=== PATIENT | female | born 1995 | race Caucasian/White ===

== ENCOUNTER 2016-12-11 11:55 | Emergency (ER) | END 2016-12-11 14:14 | disposition home or self-care (01) | DX: R10.13 Epigastric pain (principal); M54.5 Low back pain; Z33.1 Pregnant state, incidental; Z87.891 Personal history of nicotine dependence ==

== ENCOUNTER 2017-04-18 10:15 | Emergency (ER) | payer MEDICAID ==
[~2017-04-18] VITALS: Ht 157.5 cm; Wt 61.4 kg
[~2017-04-18 10:15] MED LIST: ACET500C5 PO; FAMO-96 PO; PRENAT PO
[2017-04-18 10:22] VITALS: Ht 157.5 cm; Wt 61.4 kg
--- NOTE | 2017-04-18 11:46 | ERD ---
ER Documentation Chief Complaint Chief Complaint [facility] 26 wks preg, no abd complaints HPI Otherwise healthy 21-year-old female who is 26 weeks presents requesting preoperative lab work for that she is going to get done in [place]. No complaints or symptoms at this time. ROS All systems reviewed and are negative except as per history of present illness. Medications Home Meds Active Scripts Multivit/Min/Fol Ac/Iron/Pren* ( S*) 1 Tab Tab, 1 TAB PO DAILY, #30 TAB Prov:GAVINO SHEFFIELD PA-C 12/11/16 Famotidine* (Pepcid*) 20 Mg Tablet, 20 MG PO BID for 30 Days, TAB Prov:GAVINO SHEFFIELD PA-C 12/11/16 Acetaminophen* (Tylophen*) 500 Mg Capsule, 1 CAP PO Q6H Y for PAIN AND OR ELEVATED TEMP, #20 CAP Prov:GAVINO SHEFFIELD PA-C 12/11/16 Allergies Allergies: Coded Allergies: No Known Allergy (Unverified , 04/18/17) PMhx/Soc Hx Alcohol Use: Yes (SOCIALLY) Hx Substance Use: No Hx Tobacco Use: Yes (SOCIALLY) Physical Exam Vitals Vital Signs Date Time Temp Pulse Resp B/P Pulse Ox O2 Delivery O2 Flow Rate FiO2 04/18/17 10:22 98.6 106 18 126/74 98 Physical Exam Const: Well-appearing 21-year-old female in NAD Head: Atraumatic Eyes: Normal Conjunctiva ENT: Normal External Ears, Nose and Mouth. Neck: Full range of motion..~ No meningismus. Resp: Clear to auscultation bilaterally Cardio: Regular rate and rhythm, no murmurs. Cap refill less than 2 seconds. Radial pulses 2+ bilaterally. Ext: No cyanosis, or edema Neur: Awake and alert Psych: Normal Mood and Affect Procedures/MDM Otherwise healthy 21-year-old female presents for preoperative labs. Patient is 26 weeks and is having an induced . The surgeon is in [place]. I respond to the patient that we do not do preoperative labs but I have given her a list of clinics she can go to. No suspicion for any acute pathology. I have spoke with the patient regarding their condition and future management. They have verbally responded that they understand their status and treatment plan. The patients vitals are stable, and their current condition is appropriate for discharge. The patient will be given discharge instructions with return precautions. Departure Diagnosis: Primary Impression: Encounter for laboratory test Condition: Stable Patient Instructions: : Common Questions Additional Instructions: Go to PCP for preop lab work. Return the the emergency department immediately if symptoms worsen or change. KIRSTEN ADDISON PA-C Apr 18, 2017 11:46
== END 2017-04-18 13:35 | disposition left against medical advice (07) ==
LOC: FTE 10:15
DX: Z36.9 Encounter for antenatal screening, unspecified (principal)
CPT/HCPCS: 99282

== ENCOUNTER 2017-06-14 02:31 | Inpatient (IN) | END 2017-06-17 11:10 | disposition home or self-care (01) | DRG 766 ==

== ENCOUNTER 2017-07-20 09:39 | Emergency (ER) | END 2017-07-20 13:25 | disposition home or self-care (01) ==

== ENCOUNTER 2018-05-28 11:36 | Emergency (ER) | payer OTHER ==
[~2018-05-28] VITALS: Wt 54.4 kg
[~2018-05-28 11:36] MED LIST changes: -ACET500C5 PO; +CIPR500T4 PO; -FAMO-96 PO; +MICO100S4 VG; +NAPR-985 PO; -PRENAT PO
[2018-05-28 11:38] VITALS: BP 143/83; PULSE 59; RESP 16
[2018-05-28] MEDS ORDERED: POLY10DR19 BOTH EYES (13:19)
--- NOTE | 2018-05-28 16:45 | ERD ---
ER Documentation Chief Complaint Chief Complaint RIGHT EYE REDNESS/DISCHARGE X2 DAYS HPI Patient is a 22-year-old female who presents ER for concerns of right eye redness and discharge times 2 days. Patient denies any falls or trauma. Patient states the lower aspect of her right eye is bright red. Patient denies any blurry vision. Patient denies contact lens use. Patient denies possibility of foreign body. Patient denies any headache. Patient denies excessive sneezing, coughing, straining. Patient does report wearing glasses. Patient states she noticed that she has some yellow discharge in the medial aspect of her eye this morning. Patient has no fevers or chills. ROS All systems reviewed and are negative except as per history of present illness. Medications Home Meds Active Scripts Polymyxin B Sulfate-TMP* (Polymyxin B-TMP Eye Drops*) 10 Ml Drops, 1 DROP BOTH EYES QID for 7 Days, EA Prov:GAVINO SHEFFIELD PA-C 05/28/18 Naproxen* (Naprosyn*) 500 Mg Tablet, 500 MG PO BID PRN for PAIN AND/OR INFLAMMATION, #30 TAB Prov:DK BERMUDEZ PA-C 07/20/17 Ciprofloxacin Hcl* (Ciprofloxacin Hcl*) 500 Mg Tablet, 500 MG PO BID for 7 Days, TAB Prov:DK BERMUDEZ PA-C 07/20/17 Miconazole Nitrate (Miconazole 7) 100 Mg Supp.vag, 100 MG VG QHS, #7 SUPP.VAG Prov:DK BERMUDEZ PA-C 07/20/17 Allergies Allergies: Coded Allergies: No Known Allergy (Unverified , 04/18/17) PMhx/Soc History of Surgery: Yes (c section on 06/2017) Hx Alcohol Use: Yes (SOCIALLY) Hx Substance Use: No Hx Tobacco Use: Yes (SOCIALLY) Smoking Status: Current some day smoker FmHx Family History: No diabetes Physical Exam Vitals Vital Signs Date Temp Pulse Resp B/P (MAP) Pulse Ox O2 O2 Flow FiO2 Time Delivery Rate 05/28/18 98.6 59 16 143/83 98 11:38 (103) Physical Exam GENERAL: Well-developed, well-nourished female. Appears in no acute distress. HEAD: Normocephalic, atraumatic. EYES: Pupils are equally reactive bilaterally. EOMs grossly intact. Lower aspect of the patient's right eye is noted to have a subconjunctival hemorrhage. Slight amount of yellow drainage is noted in the medial canthus. No proptosis. No pain with EOMs. ENT: Moist mucous membranes. No uvula deviation. No kissing tonsils. NECK: Supple. No meningismus. Normal range of motion of the neck. LUNG: Clear to auscultation bilaterally. No rhonchi, wheezing, rales or coarse breath sounds. HEART: Regular rate and rhythm. No murmurs, rubs or gallops EXTREMITIES: Equal pulses bilaterally. No peripheral clubbing, cyanosis or edema. No unilateral leg swelling. NEUROLOGIC: Alert and oriented. Moving all four extremities without any diffi culty. Normal speech. Steady gait. SKIN: Normal color. Warm and dry. No rashes or lesions. Procedures/MDM MEDICAL DECISION MAKING: This is a 22-year-old female who presents to the ER for concerns of right eye redness and discharge times 2 days. Vital signs were reviewed. Patient was afebrile. Physical exam findings are consistent for subconjunctival hemorrhage versus conjunctivitis. Low suspicion for allergic conjunctivitis, corneal abrasion, corneal ulcer, retained eye foreign body, glaucoma, periorbital cellulitis, orbital cellulitis, hordeolum, dacrocystitis. Patient was nontoxic, not appearing prior to discharge. PRESCRIPTIONS: Polytrim eyedrops DISCHARGE: At this time, patient is stable for discharge and outpatient management. S upportive measures were discussed with patient including warm/cool compresses. Patient advised not to wear contact lenses or eye makeup. I have instructed the patient to follow-up with his/her primary care physician in 1-2 days. I have discussed with the patient the possibility of needing to see an farm specialist for further workup if symptoms persist. I have instructed the patient to promptly return to the ER for any new or worsening symptoms including increased pain, fever, swelling, redness, warmth, nausea, vomiting, . The patient and/or family expressed understanding of and agreement with this plan. All questions were answered. Home care instructions were provided. Disclaimer: Inadvertent spelling and grammatical errors are likely due to EHR/dictation software use and do not reflect on the overall quality of patient care. Also, please note that the electronic time recorded on this note does not necessarily reflect the actual time of the patient encounter. Departure Diagnosis: Primary Impression: Subconjunctival hemorrhage of right eye Additional Impression: Conjunctivitis Conjunctivitis type: unspecified Laterality: right Qualified Codes: H10.9 - Unspecified conjunctivitis Condition: Stable Patient Instructions: Conjunctivitis Caused by Infection, Subconjunctival Hemorrhage Referrals: JULIO PRUETT MD (PCP) [facility] YOU HAVE RECEIVED A MEDICAL SCREENING EXAM AND THE RESULTS INDICATE THAT YOU DO NOT HAVE A CONDITION THAT REQUIRES URGENT TREATMENT IN THE EMERGENCY DEPARTMENT. FURTHER EVALUATION AND TREATMENT OF YOUR CONDITION CAN WAIT UNTIL YOU ARE SEEN IN YOUR DOCTORS OFFICE WITHIN THE NEXT 1-2 DAYS. IT IS YOUR RESPONSIBILITY TO MAKE AN APPOINTMENT FOR FOLOW-UP CARE. IF YOU HAVE A PRIMARY DOCTOR --you should call your primary doctor and schedule an appointment IF YOU DO NOT HAVE A PRIMARY DOCTOR YOU CAN CALL OUR PHYSICIAN REFERRAL HOTLINE AT IF YOU CAN NOT AFFORD TO SEE A PHYSICIAN YOU CAN CHOSE FROM THE FOLLOWING [facility] [address] [facility] [address] [facility] [address] [facility] [address] [facility] [address] [facility] [facility] [address] [facility] [facility] YOU HAVE RECEIVED A MEDICAL SCREENING EXAM AND THE RESULTS INDICATE THAT YOU DO NOT HAVE A CONDITION THAT REQUIRES URGENT TREATMENT IN THE EMERGENCY DEPARTMENT. FURTHER EVALUATION AND TREATMENT OF YOUR CONDITION CAN WAIT UNTIL YOU ARE SEEN IN YOUR DOCTORS OFFICE WITHIN THE NEXT 1-2 DAYS. IT IS YOUR RESPONSIBILITY TO MAKE AN APPOINTMENT FOR FOLOW-UP CARE. IF YOU HAVE A PRIMARY DOCTOR --you should call your primary doctor and schedule and appointment IF YOU DO NOT HAVE A PRIMARY DOCTOR YOU CAN CALL OUR PHYSICIAN REFERRAL HOTLINE AT . IF YOU CAN NOT AFFORD TO SEE A PHYSICIAN YOU CAN CHOSE FROM THE FOLLOWING [facility] INSTITUTIONS[facility] [address] [place] [address] [facility] [address] [place] [address] [facility] [address] [place] [address] [facility] Hours: Mon - Fri 9:00 AM - 5:00 PM Additional Instructions: Call your primary care doctor TOMORROW for an appointment during the next 1-2 days.See the doctor sooner or return here if your condition worsens before your appointment time. GAVINO SHEFFIELD PA-C May 28, 2018 16:45
== END 2018-05-28 13:35 | disposition home or self-care (01) ==
LOC: FTE 11:36
DX: H11.31 Conjunctival hemorrhage, right eye (principal); F17.210 Nicotine dependence, cigarettes, uncomplicated; H10.9 Unspecified conjunctivitis
CPT/HCPCS: 99283